=== PATIENT | female | born 1990 | race Caucasian/White ===

== ENCOUNTER 2023-03-20 08:34 | Emergency (ER) | payer OTHER ==
[~2023-03-20] VITALS: Ht 175.3 cm; Wt 81.6 kg
[~2023-03-20 08:34] MED LIST: ZANTAC300 MG PO; ZOFRAN4 MG PO; ZYRTEC10 M2 PO
[2023-03-20] MEDS ORDERED: TUSSIN DM SYRU118 ML PO (11:02)
[2023-03-20] MEDS ORDERED: OSEL75CA PO (11:02)
== END 2023-03-20 11:29 | disposition home or self-care (01) ==
LOC: ER 08:34
DX: J10.1 Influenza due to other identified influenza virus with other respiratory manifestations (principal); Z88.6 Allergy status to analgesic agent; Z88.0 Allergy status to penicillin; Z20.822 Contact with and (suspected) exposure to COVID-19

== ENCOUNTER 2024-12-20 19:08 | Emergency (ER) | payer OTHER ==
[~2024-12-20] VITALS: Ht 170.2 cm; Wt 72.6 kg
[~2024-12-20 19:08] MED LIST changes: +OSEL75CA PO; +TUSSIN DM SYRU118 ML PO
[2024-12-20 20:42] LABS: HEMATOCRIT 43.2 % (36.0-45.00); HEMOGLOBIN 14.2 g/dL (12.0-15.00); MEAN CORPUSCULAR HEMOGLOBIN 28.2 pg (27.00-32.0); MEAN CORPUSCULAR HGB CONC 32.8 g/dl (32.0-36.0); PLATELET COUNT 176 K/uL (150-450); RED BLOOD COUNT 5.02 M/uL (4.00-6.00); RED CELL DISTRIBUTION WIDTH 13.6 % (11.5-14.5)
[2024-12-20 21:12] LABS: BILIRUBIN TOTAL 0.48 mg/dL (0.3-1.2); CALCIUM 8.9 mg/dL (8.5-10.1); CREATININE SERUM 0.86 mg/dL (0.55-1.02); GFR 76.47; GLOBULINA 3.7 G/DL (2.4-3.5); POTASSIUM 3.99 mEq/L (3.5-5.1); TOTAL PROTEIN 7.7 gm/dL (6.4-8.2)
[2024-12-20] MEDS ORDERED: OSEL75CA PO (21:29)
[2024-12-20] MEDS ORDERED: FAMOTIDINE20 MG/2 M1 PO (21:29)
== END 2024-12-20 21:48 | disposition home or self-care (01) ==
LOC: ER 19:10
DX: R53.81 Other malaise (principal); J10.1 Influenza due to other identified influenza virus with other respiratory manifestations; Z20.822 Contact with and (suspected) exposure to COVID-19; Z88.0 Allergy status to penicillin; Z88.6 Allergy status to analgesic agent